=== PATIENT | male | born 1995 | race Two or more races ===

== ENCOUNTER 2019-07-06 07:01 | Inpatient (IN) | payer MEDICAID ==
[~2019-07-06] VITALS: Ht 190.5 cm; Wt 73.1 kg
[2019-07-06 08:15] LABS: BASOPHILS % (AUTO) 0.8 % (0.0-2.0); EOSINOPHILS % (AUTO) 0.6 % (1.0-6.0); HEMATOCRIT 44.8 % (41-53); HEMOGLOBIN 15.6 g/dL (13.5-17.5); LYMPHOCYTES # (AUTO) 0.7 K/uL (1.0-4.8); LYMPHOCYTES % (AUTO) 9.3 % (22.0-44.0); MEAN CORPUSCULAR HEMOGLOBIN 32.6 pg (26.0-34.0); MEAN CORPUSCULAR HGB CONC 34.8 G/dL (31.0-37.0); MEAN CORPUSCULAR VOLUME 94 fL (80-100); MONOCYTES # (AUTO) 0.6 K/uL (0.1-1.0); MONOCYTES % (AUTO) 7.2 % (2.0-9.0); NEUTROPHILS # (AUTO) 6.5 K/uL (1.8-7.7); NEUTROPHILS % (AUTO) 82.1 % (40.0-70.0); PLATELET COUNT (AUTO) 223 K/uL (150-450); RED BLOOD CELL COUNT(AUTO) 4.78 MIL/uL (4.50-5.90); RED CELL DISTRIBUTION WIDTH 13.7 % (11.5-14.5)
[2019-07-06 08:21] LABS: ANION GAP 4 mmol/L (8-16); CARBON DIOXIDE 31 mmol/L (22-29); CHLORIDE 108 mmol/L (98-107); GLOMERULAR FILTR. RATE CALC > 60 mL/min (>60); GLUCOSE,RANDOM 79 mg/dL (70-110); SODIUM SERUM 143 mmol/L (136-145); UREA NITROGEN, BLOOD 15 mg/dL (7-18)
[2019-07-06 08:27] LABS: ALANINE AMINOTRANSFERASE 43 U/L (12-78); ALBUMIN 4.5 g/dL (3.4-5.0); ALKALINE PHOSPHATASE 53 U/L (46-116); ASPARTATE AMINOTRANSFERASE 26 U/L (15-37); BILIRUBIN,TOTAL 0.6 mg/dL (0.1-1.0)
[2019-07-06 08:33] LABS: AMPHET/METH SCREEN,URINE NEGATIVE (NEGATIVE); BARBITURATE SCREEN, URINE NEGATIVE (NEGATIVE); BENZODIAZEPINES SCREEN,URINE NEGATIVE (NEGATIVE); CANNABINOID SCREEN,URINE POSITIVE (NEGATIVE); COCAINE SCREEN,URINE NEGATIVE (NEGATIVE); METHADONE SCREEN, URINE NEGATIVE (NEGATIVE); OPIATE SCREEN,URINE NEGATIVE (NEGATIVE)
[2019-07-06 08:34] LABS: PHENCYCLIDINE SCREEN,URINE NEGATIVE (NEGATIVE)
[2019-07-06] MEDS ORDERED: LORazepam 1 MG TABLET PO ONE (09:15)
[2019-07-06] MEDS ORDERED: HALOPERIDOL 5 MG TABLET PO PRN (10:15)
[2019-07-06 13:11] VITALS: BP 125/66
[2019-07-06] MEDS ORDERED: INFLUENZA VIRUS VACCINE QVS 2019-20 (3YR+)/PF 60 MCG/0.5 ML SYRINGE IM ONE (14:00)
[2019-07-06] MEDS ORDERED: PNEUMOCOCCAL VACCINE POLYVALENT 0.5 ML VIAL [PPSV23] IM ONE (14:00)
[2019-07-06 16:00] VITALS: BP 136/60
[2019-07-06] MEDS: LORazepam 2 MG TABLET PO PRN (16:52)
[2019-07-06] MEDS ORDERED: ACETAMINOPHEN 325 MG TABLET PO PRN (21:15)
[2019-07-06] MEDS ORDERED: GuaiFENesin/D-METHORPHAN [SUGAR-FREE] 200-20MG/10 ML SYRUP UDCUP PO PRN (21:15)
[2019-07-06] MEDS ORDERED: IBUPROFEN 400 MG TABLET PO PRN (21:15)
[2019-07-06] MEDS ORDERED: MAG HYDROX/AL HYDROX/SIMETH ES 30 ML SUSPENSION UDCUP PO PRN (21:15)
[2019-07-06] MEDS ORDERED: PETROLATUM,WHITE 28 GM JELLY TP PRN (21:15)
[2019-07-06] MEDS ORDERED: DOCUSATE SODIUM 100 MG CAPSULE PO PRN (21:15)
[2019-07-06] MEDS ORDERED: ALBUTEROL SULFATE HFA 90 MCG/PUFF 8 GM INHALER IH PRN (21:15)
[2019-07-06] MEDS ORDERED: LOPERAMIDE HCL 2 MG CAPSULE PO PRN (21:15)
[2019-07-06] MEDS ORDERED: NICOTINE 14 MG/24 HOUR PATCH TD PRN (21:15)
[2019-07-06] MEDS ORDERED: MAGNESIUM HYDROXIDE SUSPENSION 30 ML UDCUP PO PRN (21:15)
[2019-07-06] MEDS ORDERED: ONDANSETRON HCL 4 MG TABLET PO PRN (21:15)
[2019-07-06] MEDS ORDERED: CloNIDine HCL 0.1 MG TABLET PO PRN (21:15)
[2019-07-07 05:53] VITALS: BP 118/69
[2019-07-07] MEDS: LORazepam 2 MG TABLET PO PRN ×3 (06:13→20:17)
[2019-07-07 08:05] LABS: CHOL/HDL RATIO 2.5 (4.2-7.3)
[2019-07-07 08:24] VITALS: BP 112/63
[2019-07-07] MEDS: NICOTINE 14 MG/24 HOUR PATCH TD SCH (08:40)
[2019-07-07 16:14] VITALS: BP 128/60
[2019-07-07] MEDS: OLANZapine 5 MG TABLET PO SCH (17:10)
[2019-07-08 06:14] VITALS: BP 116/65
[2019-07-08] MEDS: LORazepam 2 MG TABLET PO PRN ×2 (08:18→16:09)
[2019-07-08] MEDS: OLANZapine 5 MG TABLET PO SCH ×2 (08:18→16:04)
[2019-07-08 08:23] VITALS: BP 128/60
[2019-07-08] MEDS: NICOTINE 14 MG/24 HOUR PATCH TD SCH (08:25)
[2019-07-08 16:14] VITALS: BP 107/71
[2019-07-08] MEDS: ZOLPIDEM TARTRATE 10 MG TABLET PO PRN (20:47)
[2019-07-09 05:44] VITALS: BP 110/78
[2019-07-09] MEDS: OLANZapine 5 MG TABLET PO SCH ×2 (08:06→16:41)
[2019-07-09] MEDS: LORazepam 2 MG TABLET PO PRN ×2 (08:06→13:59)
[2019-07-09] MEDS: NICOTINE 14 MG/24 HOUR PATCH TD SCH (08:07)
[2019-07-09 09:01] VITALS: BP 118/65
[2019-07-09 16:03] VITALS: BP 117/67
[2019-07-09] MEDS: ZOLPIDEM TARTRATE 10 MG TABLET PO PRN (21:07)
[2019-07-10 07:09] VITALS: BP 109/57
[2019-07-10 08:00] VITALS: BP 118/61
[2019-07-10] MEDS: LORazepam 2 MG TABLET PO PRN ×3 (08:12→18:09)
[2019-07-10] MEDS: OLANZapine 5 MG TABLET PO SCH ×2 (08:12→16:38)
[2019-07-10] MEDS: NICOTINE 14 MG/24 HOUR PATCH TD SCH (09:00)
[2019-07-10] MEDS: BuPROPion HCL XL 150 MG ER TABLET PO SCH (11:56)
[2019-07-10 16:03] VITALS: BP 121/69
[2019-07-10] MEDS: ZOLPIDEM TARTRATE 10 MG TABLET PO PRN (21:02)
[2019-07-11 00:38] VITALS: BP 118/72
[2019-07-11] MEDS: OLANZapine 5 MG TABLET PO SCH ×2 (08:05→17:14)
[2019-07-11] MEDS: BuPROPion HCL XL 150 MG ER TABLET PO SCH (08:06)
[2019-07-11] MEDS: NICOTINE 14 MG/24 HOUR PATCH TD SCH (08:07)
[2019-07-11 08:17] VITALS: BP 112/82
[2019-07-11] MEDS: LORazepam 2 MG TABLET PO PRN ×2 (09:58→17:14)
[2019-07-11 16:40] VITALS: BP 128/71
[2019-07-12 00:10] VITALS: BP 110/67
[2019-07-12] MEDS: LORazepam 2 MG TABLET PO PRN ×3 (03:41→17:13)
[2019-07-12] MEDS: OLANZapine 5 MG TABLET PO SCH ×2 (08:16→16:14)
[2019-07-12] MEDS: BuPROPion HCL XL 150 MG ER TABLET PO SCH (08:16)
[2019-07-12] MEDS: NICOTINE 14 MG/24 HOUR PATCH TD SCH (08:22)
[2019-07-12 08:58] VITALS: BP 105/67
[2019-07-12 16:14] VITALS: BP 115/80
[2019-07-12] MEDS: ZOLPIDEM TARTRATE 10 MG TABLET PO PRN (21:36)
[2019-07-13 00:17] VITALS: BP 96/127
[2019-07-13] MEDS: BuPROPion HCL XL 150 MG ER TABLET PO SCH (08:11)
[2019-07-13] MEDS: OLANZapine 5 MG TABLET PO SCH ×2 (08:11→16:08)
[2019-07-13] MEDS: NICOTINE 14 MG/24 HOUR PATCH TD SCH (08:11)
[2019-07-13 08:26] VITALS: BP 118/71
[2019-07-13] MEDS: LORazepam 2 MG TABLET PO PRN ×2 (09:34→16:08)
[2019-07-13 16:27] VITALS: BP 89/53
[2019-07-13] MEDS: ZOLPIDEM TARTRATE 10 MG TABLET PO PRN (21:09)
[2019-07-13 22:05] VITALS: BP 118/82
[2019-07-14 02:58] VITALS: BP 121/86
[2019-07-14] MEDS: OLANZapine 5 MG TABLET PO SCH ×2 (08:05→16:39)
[2019-07-14] MEDS: BuPROPion HCL XL 150 MG ER TABLET PO SCH (08:05)
[2019-07-14] MEDS: NICOTINE 14 MG/24 HOUR PATCH TD SCH (08:06)
[2019-07-14 08:28] VITALS: BP 132/69
[2019-07-14] MEDS: LORazepam 2 MG TABLET PO PRN ×3 (09:16→18:16)
[2019-07-14 16:23] VITALS: BP 118/60
[2019-07-14] MEDS: ZOLPIDEM TARTRATE 10 MG TABLET PO PRN (21:13)
[2019-07-15 00:38] VITALS: BP 130/77
[2019-07-15] MEDS: OLANZapine 5 MG TABLET PO SCH ×2 (08:22→16:10)
[2019-07-15] MEDS: BuPROPion HCL XL 150 MG ER TABLET PO SCH (08:22)
[2019-07-15] MEDS: NICOTINE 14 MG/24 HOUR PATCH TD SCH (08:23)
[2019-07-15 08:41] VITALS: BP 130/68
[2019-07-15] MEDS: LORazepam 2 MG TABLET PO PRN ×3 (09:27→20:54)
[2019-07-15 16:42] VITALS: BP 125/60
[2019-07-16 04:49] VITALS: BP 124/63
[2019-07-16] MEDS: BuPROPion HCL XL 150 MG ER TABLET PO SCH (08:05)
[2019-07-16] MEDS: OLANZapine 5 MG TABLET PO SCH ×2 (08:05→16:38)
[2019-07-16] MEDS: NICOTINE 14 MG/24 HOUR PATCH TD SCH (08:06)
[2019-07-16 08:30] VITALS: BP 132/77
[2019-07-16] MEDS: LORazepam 2 MG TABLET PO PRN ×2 (09:18→15:33)
[2019-07-16] MEDS ORDERED: ZOLPIDEM TARTRATE 10 MG TABLET PO PRN (15:30)
[2019-07-16 16:01] VITALS: BP 110/68
[2019-07-17] MEDS: LORazepam 2 MG TABLET PO PRN ×2 (01:13→08:23)
[2019-07-17 03:50] VITALS: BP 125/78
[2019-07-17] MEDS: OLANZapine 5 MG TABLET PO SCH (08:23)
[2019-07-17] MEDS: BuPROPion HCL XL 150 MG ER TABLET PO SCH (08:23)
[2019-07-17 08:25] VITALS: BP 128/68
[2019-07-17] MEDS: NICOTINE 14 MG/24 HOUR PATCH TD SCH (09:00)
[2019-07-17] MEDS ORDERED: OLAN5TAB2 PO (12:46)
[2019-07-17] MEDS ORDERED: BUPR75 PO (12:46)
== END 2019-07-17 14:25 | disposition home or self-care (01) | DRG 753 ==
LOC: EMS 07:01 → B2S 11:04
PROVIDERS: ADMIT Psychiatry & Neurology Psychiatry; ATTEND Psychiatry & Neurology Psychiatry
PROC: 3E02340 Introduction of Influenza Vaccine into Muscle, Percutaneous Approach (ICD-10-PCS; principal; 2019-07-06)
PROC: 3E0234Z Introduction of Serum, Toxoid and Vaccine into Muscle, Percutaneous Approach (ICD-10-PCS; 2019-07-06)
DX: F31.9 Bipolar disorder, unspecified (principal); R45.851 Suicidal ideations; F43.10 Post-traumatic stress disorder, unspecified; K21.9 Gastro-esophageal reflux disease without esophagitis; F17.200 Nicotine dependence, unspecified, uncomplicated; F12.90 Cannabis use, unspecified, uncomplicated; F10.10 Alcohol abuse, uncomplicated; Z23 Encounter for immunization
CPT/HCPCS: 90686; G0480